=== PATIENT | female | born 1960 | race African-American/Black ===

== ENCOUNTER 2023-07-10 07:30 | Inpatient (IN) | payer OTHER ==
[~2023-07-10] VITALS: Ht 162.6 cm; Wt 69.4 kg
[2023-07-10 08:04] LABS: BASOPHILS % 1.4 % (0.0-2.0); HEMATOCRIT. 35.9 % (36.0-48.0); HEMOGLOBIN. 12.1 g/dL (12.0-16.0); LYMPHOCYTES % 26.5 % (20.0-50.0); MEAN CORPUSCULAR HEMOGLOBIN 30.6 pg (28.0-32.0); MEAN CORPUSCULAR HGB CONC 33.6 g/dL (31.0-37.0); MEAN PLATELET VOLUME 8.5 fl (7.4-10.4); MONOCYTES % 4.4 % (2.0-8.0); NEUTROPHILS % 65.7 % (40.0-76.0); PLATELET 605 x1000/uL (130-400); RED BLOOD CELL COUNT 3.94 mill/uL (4.2-5.4); RED CELL DISTRIBUTION WIDTH 14.2 % (11.6-14.6); WHITE BLOOD COUNT 9.9 x1000/uL (4.5-11.0)
[2023-07-10 08:34] LABS: ALANINE AMINOTRANSFERASE 8 IU/L (10-49); ALBUMIN 4.6 g/dL (3.2-4.8); ASPARTATE AMINOTRANSFERASE 11 IU/L (<34); BILIRUBIN TOTAL 0.9 mg/dL (0.1-1.0); CALCIUM 9.3 mg/dL (8.7-10.4); CARBON DIOXIDE 27 mEq/L (21-32); CHLORIDE 108 mEq/L (98-107); CREATININE 0.8 mg/dL (0.6-1.0); GLUCOSE 124 mg/dL (70-105); PROTEIN TOTAL 8.1 g/dL (6.0-8.3); SODIUM 142 mEq/L (136-145); UREA NITROGEN BLOOD 6 mg/dL (9-23)
[2023-07-10 08:43] VITALS: PULSE 93; RESP 22
[2023-07-10] MEDS: ALBUTEROL (0.083%) 2.5MG/3ML NEB HHN ONE ×2 (08:43→12:51)
[2023-07-10] MEDS: IPRATROPIUM/ALBUTEROL 0.5-3(2.5)MG/3ML NEB HHN ONE (08:44)
[2023-07-10] MEDS: METHYLPREDNISOLONE SOD SUCC 125MG/2ML (ACT-O-VIAL) IV ONE (08:47)
[2023-07-10] MEDS: AZITHROMYCIN 500MG/250ML 250 ML IV ONE (08:48)
[2023-07-10 09:07] LABS: POTASSIUM 2.8 mEq/L (3.5-5.1)
[2023-07-10 09:39] LABS: PARTIAL THROMBOPLASTIN TIME 31.5 sec (23.4-31.0); PROTHROMBIN TIME 11.1 sec (9.6-11.0)
[2023-07-10 10:01] LABS: TROPONIN I HIGH SENSITIVITY 20 ng/L (3.0-34)
[2023-07-10] MEDS: CEFTRIAXONE 2GM/50ML 50 ML IV ONE (10:13)
[2023-07-10] MEDS: POTASSIUM CHLORIDE 20MEQ TABLET SR PO ONE (10:36)
[2023-07-10 10:52] LABS: TROPONIN I HIGH SENSITIVITY 18 ng/L (3.0-34)
[2023-07-10] MEDS: KCL 20MEQ/100ML PREMIX 100 ML IV ONE (11:51)
[2023-07-10 12:51] VITALS: PULSE 97; RESP 22; O2SAT 98
[2023-07-10] MEDS ORDERED: NITROGLYCERIN 0.4MG TABLET SL SL ONE (14:00)
[2023-07-10] MEDS ORDERED: NITROGLYCERIN 50MG PREMIX 250 ML IV ONE (14:00)
[2023-07-10] MEDS: HYDRALAZINE 20MG/ML VIAL IV ONE (14:19)
[2023-07-10] MEDS: POTASSIUM CHLORIDE 20MEQ TABLET SR PO NR (16:50)
[2023-07-10] MEDS: LABETALOL 5MG/ML SYR 20 MG/4 ML SYRINGE IV PRN (16:58)
[2023-07-10 18:07] LABS: LACTIC ACID 5.4 mmol/L (0.4-2.0)
[2023-07-10 18:44] VITALS: BP 157/88; PULSE 95; RESP 20; TEMP 98.7
[2023-07-10 20:00] VITALS: BP 180/100; PULSE 79; RESP 18; TEMP 98.4
[2023-07-10] MEDS: CLONIDINE 0.1MG TABLET PO PRN (21:36)
[2023-07-10] MEDS: ACETAMINOPHEN 325MG TABLET PO PRN (21:36)
[2023-07-11] VITALS (8 sets, daily range): BP systolic 119–165; BP diastolic 55–89; PULSE 20–98; RESP 18–20; TEMP 97.7–98.4; O2SAT 98
[2023-07-11 10:09] LABS: CALCIUM 10.5 mg/dL (8.7-10.4); CARBON DIOXIDE 24 mEq/L (21-32); CHLORIDE 105 mEq/L (98-107); GLUCOSE 103 mg/dL (70-105); PHOSPHORUS 3.9 mg/dL (2.5-4.9); POTASSIUM 4.7 mEq/L (3.5-5.1); SODIUM 136 mEq/L (136-145); TROPONIN I HIGH SENSITIVITY 18 ng/L (3.0-34); UREA NITROGEN BLOOD 14 mg/dL (9-23)
[2023-07-11] MEDS: IPRATROPIUM/ALBUTEROL 0.5-3(2.5)MG/3ML NEB HHN PRN (14:15)
[2023-07-11] MEDS: ENOXAPARIN 40MG/0.4ML SYR SUBCUT SCH (14:17)
[2023-07-11] MEDS: BUDESONIDE 0.5MG/2ML NEB HHN SCH (20:41)
[2023-07-12] VITALS (9 sets, daily range): BP systolic 116–161; BP diastolic 67–78; PULSE 75–88; RESP 16–21; TEMP 97.2–98.1
[2023-07-12] MEDS: IPRATROPIUM/ALBUTEROL 0.5-3(2.5)MG/3ML NEB HHN SCH (02:10)
[2023-07-12] MEDS ORDERED: REGADENOSON 0.4 MG/5 ML IV NR (15:45)
[2023-07-12] MEDS: PNEUMOCOCCAL 23-VAL P-SAC VAC 0.5 ML IM ONE (16:59)
[2023-07-12 20:06] LABS: *AMPHETAMINES SCREEN URINE NEGATIVE (NEGATIVE); *BARBITURATES SCREEN URINE NEGATIVE (NEGATIVE); *BENZODIAZEPINES SCREEN URINE NEGATIVE (NEGATIVE); *COCAINE SCREEN URINE NEGATIVE (NEGATIVE)
[2023-07-12 20:07] LABS: CANNABINOID URINE SCREEN PRESUMPTIVE POSITIVE (NEGATIVE); ECSTASY MDMA SCREEN URINE NEGATIVE (NEGATIVE); METHADONE URINE SCREEN Neg (NEGATIVE); OPIATES URINE SCREEN NEGATIVE (NEGATIVE); PHENCYCLIDINE URINE SCREEN NEGATIVE (NEGATIVE)
[2023-07-13] VITALS (8 sets, daily range): BP systolic 123–142; BP diastolic 77–94; PULSE 75–103; RESP 18–20; TEMP 96.4–98.8; O2SAT 100
[2023-07-13] MEDS ORDERED: REGADENOSON 0.4 MG/5 ML IV ONE (09:50)
[2023-07-13 13:33] LABS: CHLORIDE 99 mEq/L (98-107); POTASSIUM 4.7 mEq/L (3.5-5.1); SODIUM 133 mEq/L (136-145)
[2023-07-13 13:34] LABS: CALCIUM 10.9 mg/dL (8.7-10.4); CARBON DIOXIDE 28 mEq/L (21-32)
[2023-07-13 13:39] LABS: CREATININE 0.8 mg/dL (0.6-1.0); GLUCOSE 129 mg/dL (70-105); UREA NITROGEN BLOOD 23 mg/dL (9-23)
[2023-07-13] MEDS ORDERED: LOSA1TAB34 PO (15:27)
[2023-07-13] MEDS ORDERED: MONT-39 PO (15:27)
[2023-07-13] MEDS ORDERED: FLUO20TA29 PO (15:27)
[2023-07-13] MEDS ORDERED: EZET-55 MT (15:29)
[2023-07-13] MEDS ORDERED: BUSP10TA3 PO (15:30)
[2023-07-13] MEDS ORDERED: OXYB-52 PO (15:32)
[2023-07-13] MEDS ORDERED: ARIP20TA16 PO (15:33)
[2023-07-13] MEDS ORDERED: CHOL400D7 PO (15:35)
[2023-07-13] MEDS ORDERED: INDA2.5T5 PO (15:36)
[2023-07-13] MEDS: FUROSEMIDE 40MG/4ML VIAL IVP SCH (16:08)
[2023-07-14] MEDS ORDERED: SPIRONOLACTONE 12.5MG TABLET PO SCH (09:00)
[2023-07-14] MEDS ORDERED: LOSARTAN 25 MG TABLET PO SCH (09:00)
== END 2023-07-13 19:00 | disposition home or self-care (01) | DRG 291 ==
LOC: ER 07:30 → 5WST 14:07 → EDBEDREQ 14:10 → EDBEDREQTM 14:10 → 8WST 18:52
PROVIDERS: ADMIT Internal Medicine; ATTEND Internal Medicine
DX: I11.0 Hypertensive heart disease with heart failure (principal); I50.23 Acute on chronic systolic (congestive) heart failure; J96.01 Acute respiratory failure with hypoxia; J44.1 Chronic obstructive pulmonary disease with (acute) exacerbation; I42.8 Other cardiomyopathies; E87.6 Hypokalemia; F41.9 Anxiety disorder, unspecified; Z20.822 Contact with and (suspected) exposure to COVID-19; F17.210 Nicotine dependence, cigarettes, uncomplicated; Z88.6 Allergy status to analgesic agent; Z90.710 Acquired absence of both cervix and uterus
CPT/HCPCS: 36415; 71045; 78452; 80048; 80053; 80305; 83605; 83735; 83880; 84100; 84145; 84484; 85025; 85379; 87426; 87804; 90732; 93005; 93017; 93306; 93970; 94640; 99285; A9500; J0360; J0456; J0696; J1650; J1940; J2785; J2930; J3480; J3490; J7626